=== PATIENT | female | born 2000 | race African-American/Black ===

== ENCOUNTER 2021-11-12 03:07 | Day surgery (SDC) | payer OTHER, SELFPAY ==
[2021-11-05 14:53] VITALS: BMI 20.4
--- NOTE | 2021-11-05 14:55 | SUR.PREOP ---
Report to the Outpatient Waiting Room, entrance under the green pavilion located off [facility], at time _0600 on date _11/12/21 . OR Time: _0730 - You and your visitor will be asked a series of questions to screen for COVID 19 for your protection. - Only one visitor is allowed at this time. - The patient visitor is requested to leave or wait in car when not with patient. - A mask is required within the hospital. Patients may have clear liquids (water, carbonated beverages, clear teas, apple juice) until 3 hours prior to surgery with a maximum of 20 ounces. - No food from midnight until time of surgery - Infants may have breast milk until 4 hours before surgery, infant formula 6 hours prior to surgery. - Children will be allowed to drink immediately following surgery. If applicable, please bring a bottle or sippy cup to assist with drinking. Juice, water, soda, and popsicles are readily available. For infants on formula, please bring formula the day of surgery. Pacifiers are allowed. Take the following medications with a SIP of water the morning of surgery: n/a Medications to discontinue per physician n/a Date to take last dose__n/a Please no make-up, nail citizen of [place], hairspray, perfume, deodorant, or body powder the day of surgery. No jewelry (including any body piercings) or valuables the day of surgery, leave them at home. Please take a shower or bath the night before, or the morning of, surgery with an antibacterial soap. Wear comfortable, loose fitting clothing. Children are encouraged to wear pajamas. - Jewelry must be removed prior to entering the operating room. Rings and piercings that are not removed may be cut off. - The hospital will not accept responsibility for valuables. - Please leave all valuables, including medications, at home the day of surgery. If you are going home after surgery, a licensed bung driver must drive you home. - NO public transportation without another adult. - We recommend that an adult stay with you for 24 hours following discharge. - We also recommend that you do not drive, make important decision, drink alcoholic beverages, or take any drugs that were not prescribed by your health care provider for at least 24 hours after your discharge time. For Pediatric surgeries, we recommend two adults accompany the child home (only one inside the building at this time). Follow any additional instructions given to you from your surgeon. If you or anyone in your household have experienced Covid symptoms in the past week, please notify your surgeon or the nurse liaison at the phone number below for possible testing. Telephone instructions given to _pattie carroll and asked if any additional questions and then verbalized understanding. Patient advised to call surgeon office or pre surgery nurse liaison [phone] if any additional questions.
[2021-11-12] MEDS: LACTATED RINGERS 1,000 ML 30 ML IV CONT ×2 (06:45→08:08)
--- NOTE | 2021-11-12 06:46 | P.PNAN_ITS ---
Anes - Initial Pre Proc Eval Procedure: Operation Date: 11/12/21 07:30 Proposed Procedures p Excision Subcutaneous Mass Right Dorsal Wrist - Sammy Jay MD Date/Time: 11/12/21 06:46 Surgeon: Sammy Jay MD Pre Op Diagnosis: subq mass right dorsal wrist Patient Data Age: 21 Gender: F Height: 1.61 m Weight: 53.18 kg Allergies Allergy/AdvReac Type Severity Reaction Status Date / Time yaima wrap AdvReac Mild Hives Uncoded 11/05/21 15:06 Home Medications Medication Instructions Recorded Confirmed Type No Home Medications 11/05/21 11/05/21 History Patient hx anesthesia problems: none Family hx anesthesia problems: none Results Review: All pre-operative results and documents have been reviewed as part of the pre- operative evaluation. [facility] Social History Social History Smoking status: Never smoker Living arrangements: alone Spiritual care concerns: No Anes - Eval Final PreProcedure Day of Procedure 11/12/21 06:46 Patient weight: normal Heart: regular rate and rhythm Lungs: clear to auscultation Airway: Mallampati scale class II Neurological: alert and oriented Last oral intake: >/= 8 hours ASA classification: I Emergent: no Anesthetic plan: proceed Anesthesia type and monitoring: general GIVS and standard monitoring Results Review: All pre-operative results and documents have been reviewed as part of the pre- operative evaluation. Informed Consent: The patient's anesthetic plan and its attendant risks and benefits were discussed with the patient/family/POA. Questions were solicited and answers provided to the satisfaction of the patient/family/POA.
[2021-11-12 07:00] VITALS: BP 116/74; PULSE 97; RESP 18; TEMP 36.8; O2SAT 97
--- NOTE | 2021-11-12 07:08 | WPDHPUPDATE1 ---
History and Physical Update Update Date/Time: 11/12/21 07:08 History and Physical has been reviewed, including an updated exam of the patient. There are NO changes in the patient's condition. Risks, benefits, and alternatives have been discussed and questions answered. Patient agrees to proceed with procedure.
[2021-11-12] MEDS: LIDO 2%/EPINEPHRINE 1:100,000 20 ML VIAL 10 ML INFILTRATE (07:35)
[2021-11-12 08:08] VITALS: BP 106/57; PULSE 92; RESP 16; O2SAT 100
--- NOTE | 2021-11-12 08:16 | W.PM.PROC2 ---
Procedure Note - Detailed Date of Procedure 11/12/21 Pre-op Diagnosis subq mass right dorsal wrist Post-op Diagnosis Same Procedure Performed Excision subcutaneous mass right dorsal wrist Surgeon Sammy Jay MD Anesthesia MAC Indications Dear subcu mass of the dorsal radiocarpal joint Findings Small amount of clear gel fluid and unusually vascularized local tissue Description of Procedure The subcutaneous mass on the right dorsal wrist was marked with the patient's preoperative on the right dorsal wrist. She was taken to the operating room where she was placed supine on the operating table. She was given IV sedation. The extremity was prepped and draped in usual fashion. A time-out was held and confirmed. The site was marked for incision and locally infiltrated with 1% lidocaine with epinephrine. The extremity was exsanguinated and the tourniquet inflated to 250 mmHg. The full towel was placed under the volar wrist and the incision was made. Dissection was carried through the subcutaneous tissue. A violaceous mass was encountered in the subcutaneous tissue. This was carefully dissected free it appeared to be linear. As this was dissected was clear the additional unusually vascularized tissue extended toward the wrist capsule. A small amount of gel fluid was encountered as we progressed. The vascular structure just proximal to the cystic mass was dissected free and ligated and divided. No similar structure was clearly identified or divided distally. The mass was dissected with sharp and blunt dissection gently elevating it from the capsule area. The vascularity of this massive. The this might be synovitis. The mass was taken off without significant effort at its origin. We examined his carefully looking for penetration into the joint capsule and did not identify that. The specimen was sent to pathology. A single 3-0 on mattress suture was placed transversely at the margins of the inflammatory tissue after cauterizing the surface. This suture did not impede passive flexion of the wrist. It did not include retinacular tissue. The tourniquet was released and the skin was closed with intradermal 4-0 Monocryl suture. A small bandage using Xeroform a folded drain sponge 3 turns of Kerlix roll and 1/2 3 in Fernando wrap were applied to this area for dressing care was taken not to tighten the Fernando wrap were applied tape to the skin. Tolerated well the patient is discharged home with a prescription for hydrocodone 5/325 number 5. She also has written instructions in care and Estimated Blood Loss -1.0 Drains No Pathology Yes Complications No immediate complications Condition Stable Disposition Same day
[2021-11-12 08:35] VITALS: BP 103/60; PULSE 71; RESP 16; O2SAT 100
[2021-11-12 09:05] VITALS: BP 119/82; PULSE 95; RESP 16
== END 2021-11-12 09:11 | disposition home or self-care (01) ==
PROVIDERS: Visit Provider Plastic Surgery
PROC: (CPT 25075; principal; 2021-11-12 07:30)
DX: R22.31 Localized swelling, mass and lump, right upper limb (principal)
CPT/HCPCS: 25075; 88304; J1885; J2250; J2370; J2704; J3010; J7120

== ENCOUNTER 2022-10-29 14:07 | Emergency (ER) | payer OTHER, SELFPAY ==
--- NOTE | ~2022-10-29 | US_ITS ---
EXAMINATION: US pelvic complete DATE: 10/29/2022 18:41 INDICATION: R pelvic pain, hx hemorrhagic cyst. Hemorrhagic cyst apparently cauterized during an appe ndectomy 2 weeks ago. TECHNIQUE: Multiple transabdominal and endovaginal sonographic images of the pelvis were obtained. COMPARISON: None. FINDINGS: Uterus: 7.0 x 3.5 x 3.7 cm. Endometrial complex measures 10 mm. Right Ovary: 5.0 x 5.8 x 4.3 cm. lobulated 2.9 cm right ovarian cyst with variably echogenic content, some of which displays minor color on color Doppler images presumably related to motion artifact. Va scular flow is present in the ovary, increased relative to the contralateral side. Left Ovary: 3.0 x 1.6 x 2.7 cm. Vascular flow is present. There is no free fluid in the pelvis. IMPRESSION: Heterogeneous 2.9 cm right ovarian cyst in a generally hyperemic ovary, presumably representing a res olving hemorrhagic cyst and post therapeutic changes, given the above history. Consider short-term pe lvic ultrasound follow-up to ensure resolution. Reviewed, dictated and finalized at location K. IMPRESSION: Heterogeneous 2.9 cm right ovarian cyst in a generally hyperemic ovary, presuma viry representing a resolving hemorrhagic cyst and post therapeutic changes, giv en the above history. Consider short-term pelvic ultrasound follow-up to ensure resolution.
[2022-10-29 14:22] VITALS: BP 110/70; PULSE 128; RESP 18; TEMP 36.4; O2SAT 99
--- NOTE | 2022-10-29 17:07 | ED.LOWEXIN ---
HPI - Extremity Injury (Lower) General Chief Complaint: Extremity Injury, Lower Stated Complaint: R hip/leg pain Time Seen by Provider: 10/29/22 16:51 History of Present Illness HPI Narrative: 22-year-old female here for evaluation of right pelvic pain x2 weeks. Patient states that she had her appendix removed 2 weeks ago by a surgeon at [place]. Apparently during the surgery the surgeon noticed that she had a hemorrhagic ovarian cyst and this was ligated. She was told to follow-up with an MANAGER PACU. According to the patient since surgery she has had a large amount of pain in her right groin/pelvic region and has had a large amount of custard like vaginal discharge. She has been taking oxycodone for pain without relief. She denies chance of as she is not sexually active. Reports nausea but no vomiting. No urinary symptoms. Related Data Allergies Allergy/AdvReac Type Severity Reaction Status Date / Time yaima wrap AdvReac Mild Hives Uncoded 11/12/21 07:21 Review of Systems Review of Systems: Gen.: Denies fevers or chills Eyes: Denies eye pain or visual change ENT: Denies congestion Respiratory: Denies shortness of breath or cough CV: Denies chest pain or palpitations GI: Denies abdominal pain nausea, emesis or diarrhea reports right pelvic pain and vaginal discharge. Denies burning, urgency, frequency or hematuria Musculoskeletal: Denies back pain or muscle pain Neuro: Denies numbness, tingling, weakness or focal weakness Skin: Denies rash Except as documented, all other systems reviewed and negative PMFSH Social History Social History Smoking status: Never smoker Living arrangements: alone Spiritual care concerns: No Exam Narrative: APPEARANCE: Well appearing, no pain in distress, well-nourished. Head: Normocephalic and atraumatic. EYES: PERRLA/EOMI, conjunctivae clear NOSE: No nasal drainage EARS: External ear normal in appearance THROAT: Oropharynx is clear. Mucous membranes are moist. NECK: Supple. No adenopathy, no masses. RESPIRATORY: Airway patent, respirations nonlabored. Clear to auscultation bilaterally, no rales, rhonchi, wheezing. : exam performed with director organizational alisson. moderate amount of green/yellow discharge in vaginal vault. cervix without lesions. no CMT. CARDIOVASCULAR: Regular rate and rhythm without murmurs, rubs, or gallops. ABDOMINAL: Normoactive bowel sounds. Soft, nontender, nondistended. No rebound tenderness or guarding. MUSCULOSKELETAL: Extremities are warm and well-perfused. Moves all extremities well. No edema. NEURO: Normal speech. No focal neurologic deficits. SKIN: Skin is warm and dry. No rashes. PSYCHIATRIC: Normal affect/mood. Course Vital Signs Vital signs: Vital Signs Temperature 97.6 F 10/29/22 14:22 Pulse Rate 128 H 10/29/22 14:22 Respiratory Rate 18 10/29/22 14:22 Blood Pressure 110/70 10/29/22 14:22 Pulse Oximetry 99 10/29/22 14:22 Oxygen Delivery Room Air 10/29/22 14:22 Temperature 97.6 F 10/29/22 14:22 Pulse Rate 95 10/29/22 20:07 Respiratory Rate 18 10/29/22 20:07 Blood Pressure 108/64 10/29/22 20:07 Pulse Oximetry 99 10/29/22 20:07 Oxygen Delivery Room Air 10/29/22 14:22 MDM - Extremity Injury (Lower) MDM Narrative Medical decision making narrative: 21-year-old female here for evaluation of pelvic pain x1 week. Evidence of resolving hemorrhagic cyst on the ultrasound. Patient initially tachycardic likely due to pain which resolved in the ED with fluids and pain meds. Pelvic exam without CMT to suggest PID. Basic labs unremarkable. UA with possible infection. Spoke with Dr. Forrest, MANAGER PACU, who will follow as outpatient. Will send home with short course of pain meds and antibiotics for UTI. Lab Data 10/29/22 17:24 10/29/22 17:24 Labs: Lab Results 10/29/22 10/29/22 10/29/22 Range/Units 17:24 18:
[2022-10-29] MEDS: SODIUM CHLORIDE 0.9% IV 1,000 ML 999 ML IV CONT (17:24)
[2022-10-29] MEDS: ONDANSETRON INJ 4 MG/2 ML VIAL IV PUSH (17:25)
[2022-10-29] MEDS: KETOROLAC 15 MG/ML VIAL (*BKC) IV PUSH (17:25)
[2022-10-29 17:42] LABS: Basophils Percent Auto 0.3 % (0.2-1.2); Eosinophils Percent Auto 0.2 % (0-4.4); Hematocrit 37.6 % (37.0-47.0); Hemoglobin 12.1 g/dL (12.0-15.0); Immature Granulocyte Absolute 0.04 K/mm3 (0.00-0.031); Immature Granulocyte Percent A 0.3 % (0-0.5); Lymphocytes Absolute Auto 2.15 K/mm3 (0.9-3.2); Lymphocytes Percent Auto 18.8 % (18.3-44.2); Mean Corpuscular HGB Conc 32.2 g/dl (32-36); Mean Corpuscular Hemoglobin 28.5 pg (26-34); Mean Corpuscular Volume 88.7 fl (80-100); Mean Platelet Volume 9.5 fl (7.4-10.4); Monocytes Percent Auto 8.4 % (2.6-8.5); Neutrophils Absolute Auto 8.2 K/mm3 (1.3-6.7); Platelet Count Result 607 k/mm3 (150-375); Red Blood Count 4.24 M/mm3 (4.2-5.4); Red Cell Distribution Width 12.6 % (11.5-14.5); White Blood Count 11.4 K/mm3 (4.5-10.0)
[2022-10-29 17:51] LABS: Appearance Urine Cloudy (Clear); Bacteria Urine 2+ /hpf; Bilirubin Urine Negative (Negative); Blood Urine Negative (Negative); Color Urine Dark Yellow (Yellow); Glucose Urine UA Negative (Negative); Ketones Urine 1+ mg/dL (Negative); Leukocyte Esterase Ur 2+ LEU/UL (Negative); Nitrate Urine Negative (Negative); Protein Urine 1+ mg/dL (Negative); RBC Urine 0-2 /hpf (0-2); Specific Grav Ur 1.022 (1.001-1.035); Squamous Epithelial Cell Urine Moderate /hpf (Few); WBC Urine 51-100 /hpf
[2022-10-29 17:53] LABS: Alanine Aminotransferase 21 U/L (6-35); Albumin Level 4.5 g/dL (3.5-5.1); Alkaline Phosphatase 100 U/L (38-126); Anion Gap 9 mmol/L (8-16); Aspartate Amino Transferase 24 U/L (14-36); Bilirubin,Total 0.5 mg/dL (0.2-1.3); Blood Urea Nitrogen 7 mg/dL (7-17); Calcium 9.3 mg/dL (8.4-10.2); Carbon Dioxide 26 mmol/L (22-30); Chloride 99 mmol/L (98-107); Estimated CRCL calculation 83 ml/min; Estimated Glomerular Filt Rate > 60; Glucose 94 mg/dL (65-110); Sodium 134 mmol/L (137-145)
[2022-10-29 17:55] LABS: Add Urine Microscopic? YES
[2022-10-29] MEDS: MORPHINE SULFATE (*CRX) 2 MG/ML INJ IV PUSH (18:35)
[2022-10-29 20:07] VITALS: BP 108/64; PULSE 95; RESP 18; O2SAT 99
== END 2022-10-29 20:00 | disposition home or self-care (01) ==
PROVIDERS: Emergency Provider Physician Assistant; PCP Nurse Practitioner Family
DX: N83.201 Unspecified ovarian cyst, right side (principal); N39.0 Urinary tract infection, site not specified; N89.8 Other specified noninflammatory disorders of vagina; R11.0 Nausea; Z98.890 Other specified postprocedural states
CPT/HCPCS: 36415; 76856; 80053; 81001; 81025; 83605; 85025; 87070; 87086; 87088; 87491; 87591; 87808; 96361; 96374; 96375; 99284; J1885; J2270; J2405; J7030

== ENCOUNTER 2023-03-31 19:26 | Emergency (ER) | payer OTHER, SELFPAY ==
--- NOTE | ~2023-03-31 | XR_ITS ---
EXAMINATION: XR chest 2V Exam Date/Time: 03/31/2023 19:38 SKIN DIVER HISTORY: cough, congestion. CHRONIC CHEST PAIN IN CENTER OF CHEST Comparison: None. RESULT: Lines, tubes, and devices: None. Lungs and pleura: Clear. Cardiomediastinal silhouette: Normal. Other: No acute osseous or upper abdominal finding. IMPRESSION: No acute cardiopulmonary process. Reviewed, dictated and finalized at location K. DIVER
--- NOTE | 2023-03-31 19:27 | ECG_ITS ---
Measurements Intervals [place] Rate: 104 P: 75 CA: 132 QRS: 62 QRSD: 78 T: -11 QT: 292 QTc: 385 Interpretive Statements SINUS TACHYCARDIA LEFT ATRIAL ENLARGEMENT BORDERLINE ST-T WAVE ABNORMALITY- ANT/INF LEADS BORDERLINE ECG NO PREVIOUS ECG AVAILABLE FOR COMPARISON Electronically Signed On 04-01-2023 6:41:52 DEPARTURE CLERK by Alexis Vargas D.O.
[2023-03-31 19:33] VITALS: BP 143/76; PULSE 104; RESP 12; TEMP 36.5; O2SAT 100
[2023-03-31 20:17] LABS: Influenza A QL RT-PCR Negative (Negative); Influenza B QL RT-PCR Negative (Negative); RSV RNA, RT-PCR Negative (Negative); SARS-CoV-2 RNA PCR Negative (Negative)
[2023-03-31 21:33] VITALS: BP 136/81; PULSE 115; RESP 22; O2SAT 100
[2023-03-31 21:38] VITALS: O2SAT 100
--- NOTE | 2023-03-31 22:17 | ED.CHESTPAIN ---
HPI - Chest Pain General Chief Complaint: Chest Pain Stated Complaint: chest pains, sob Time Seen by Provider: 03/31/23 21:33 History of Present Illness HPI narrative: 22-year-old female reports for evaluation for midsternal chest pain, sore throat, and productive cough x1 week. Patient states about a week ago she began developing URI symptoms including a productive cough and then yesterday developed pleuritic substernal chest pain. She denies radiating symptoms, diaphoresis or nausea. She reports a sore throat and bilateral otalgia but denies fever, nausea or vomiting, nasal congestion, syncope. States her cough has improved today and her chest pain is currently ?very faint?. She does report a history of sports induced asthma as a child but states that it has since resolved. She does not smoke. She is being worked up outpatient by her PCP for chronic chest pain and tachycardia for multiple years, no known cause identified. She had a Holter monitor 3 weeks ago and is waiting to hear back results. She states the chest pain she began experiencing yesterday and today is unchanged from her chronic chest pain. Denies abdominal pain, urinary complaints. Patient was sent here by urgent care and had a negative strep test prior to arrival. Related Data Allergies Allergy/AdvReac Type Severity Reaction Status Date / Time yaima wrap AdvReac Mild Hives Uncoded 11/12/21 07:21 Review of Systems Review of Systems: CONSTITUTIONAL: Denies fever, chills, or sweats. EYES: Denies visual changes, redness, or discharge. ENT: See HPI CARDIOVASCULAR: See HPI RESPIRATORY: Denies cough or dyspnea. GASTROINTESTINAL: Denies abdominal pain, nausea, vomiting, or diarrhea. GENITOURINARY: Denies dysuria or hematuria. SKIN: Denies rash or itching. MUSCULOSKELETAL: Denies back pain, joint pain, or myalgia. NEUROLOGIC: Denies headache, numbness, or weakness. PSYCHIATRIC: Denies anxiety or depression. [facility] Social History Social History Smoking status: Never smoker Living arrangements: alone Spiritual care concerns: No Exam Narrative: GENERAL: Well-appearing, well-nourished, and in no acute distress. HEAD: Normocephalic, atraumatic. EYES: PERRLA and EOMI. ENT: Nares clear, no rhinorrhea or epistaxis. Mucous membranes moist. Bilateral tonsils without hypertrophy or exudates. No erythema to posterior pharynx. There is postnasal drip. NECK: Supple. CHEST: Clear to auscultation. No respiratory distress. HEART: Regular rate and rhythm. No murmur heard. Normal peripheral pulses. ABDOMEN: Soft, nontender, nondistended, normal active bowel sounds. No CVA tenderness. EXTREMITIES: Normal range of motion. No edema. SKIN: Warm, dry, no rash. NEURO: No focal deficits. Alert and oriented x3 Course Vital Signs Vital signs: Vital Signs Temperature 97.7 F 03/31/23 19:33 Pulse Rate 104 H 03/31/23 19:33 Respiratory Rate 12 03/31/23 19:33 Blood Pressure 143/76 H 03/31/23 19:33 Pulse Oximetry 100 03/31/23 19:33 Oxygen Delivery Room Air 03/31/23 19:33 Temperature 97.7 F 03/31/23 19:33 Pulse Rate 115 H 03/31/23 21:33 Respiratory Rate 22 H 03/31/23 21:33 Blood Pressure 136/81 03/31/23 21:33 Pulse Oximetry 100 03/31/23 21:38 Oxygen Delivery Room Air 03/31/23 21:38 MDM - Chest Pain MDM Narrative Medical decision making narrative: 22-year-old female with history of chronic chest pain and tachycardia reports for evaluation for pleuritic chest pain, sore throat, otalgia and productive cough. See HPI for further history. Triage vitals significant for mildly elevated blood pressure 143/76 and tachycardia before. She is afebrile and well appearing on exam. Exam is significant for the above. CBC without leukocytosis or anemia. Chemistries unremarkable. Magnesium normal. [place], COVID, flu RSV are negative. Lipase normal. D-dimer within normal limits, We
[2023-03-31] MEDS: SODIUM CHLORIDE 0.9% IV 1,000 ML 999 ML IV CONT (22:33)
[2023-03-31] MEDS: KETOROLAC 15 MG/ML VIAL (*BKC) IV PUSH (22:34)
[2023-03-31 23:02] LABS: Prothrombin Time 13.6 Seconds (11.1-14.7)
[2023-03-31 23:03] LABS: Partial Thromboplastin Time 31.7 SECONDS (22.3-36.8)
[2023-03-31 23:05] LABS: Lipase 105 U/L (23-300)
[2023-03-31 23:18] LABS: NT Pro B Type Natriuretic Pept 34 pg/mL (19.9-100); Troponin I < 0.012 ng/mL (0.000-0.034)
[2023-03-31 23:35] LABS: Monoscreen Negative (Negative); Negative Monotest Control Negative (Negative); Positive Monotest Control Positive (Positive)
[2023-04-01 00:35] LABS: Basophils Absolute Auto 0.1 K/mm3 (0.0-0.1); Basophils Percent Auto 0.7 % (0.2-1.2); Eosinophils Absolute Auto 0.3 K/mm3 (0-0.3); Eosinophils Percent Auto 3.2 % (0-4.4); Hematocrit 41.6 % (37.0-47.0); Hemoglobin 13.3 g/dL (12.0-15.0); Immature Granulocyte Absolute 0.03 K/mm3 (0.00-0.031); Immature Granulocyte Percent A 0.3 % (0-0.5); Lymphocytes Absolute Auto 3.58 K/mm3 (0.9-3.2); Lymphocytes Percent Auto 40.9 % (18.3-44.2); Mean Corpuscular Hemoglobin 28.7 pg (26-34); Mean Corpuscular Volume 89.7 fl (80-100); Mean Platelet Volume 10.8 fl (7.4-10.4); Monocytes Absolute Auto 0.8 K/mm3 (0.1-0.6); Monocytes Percent Auto 9.1 % (2.6-8.5); Neutrophils Percent Auto 45.8 % (45.5-73.1); Platelet Count Result 325 k/mm3 (150-375); Red Blood Count 4.64 M/mm3 (4.2-5.4); Red Cell Distribution Width 12.7 % (11.5-14.5); White Blood Count 8.8 K/mm3 (4.5-10.0)
[2023-04-01 00:39] LABS: Alanine Aminotransferase 21 U/L (6-35); Albumin Level 4.6 g/dL (3.5-5.1); Alkaline Phosphatase 86 U/L (38-126); Anion Gap 14 mmol/L (8-16); Aspartate Amino Transferase 27 U/L (14-36); Bilirubin,Total 0.4 mg/dL (0.2-1.3); Blood Urea Nitrogen 12 mg/dL (7-17); Calcium 9.6 mg/dL (8.4-10.2); Carbon Dioxide 23 mmol/L (22-30); Chloride 104 mmol/L (98-107); Estimated CRCL calculation 89 ml/min; Estimated Glomerular Filt Rate > 60; Glucose 90 mg/dL (65-110); Potassium 3.8 mmol/L (3.4-5.0); Sodium 141 mmol/L (137-145)
[2023-04-01 00:59] VITALS: BP 122/79; PULSE 97; RESP 12; TEMP 36.9; O2SAT 100
== END 2023-04-01 01:28 | disposition home or self-care (01) ==
PROVIDERS: Emergency Medicine; Emergency Provider Physician Assistant; PCP Nurse Practitioner Family
DX: J40 Bronchitis, not specified as acute or chronic (principal); R07.89 Other chest pain; R09.1 Pleurisy; J02.9 Acute pharyngitis, unspecified; R00.0 Tachycardia, unspecified
CPT/HCPCS: 36415; 71046; 80053; 81025; 83690; 83735; 83880; 84484; 85025; 85380; 85610; 85730; 86308; 87637; 93005; 96361; 96374; 99284; J1885; J7030

== ENCOUNTER 2023-07-30 08:30 | Emergency (ER) | payer OTHER, SELFPAY ==
--- NOTE | ~2023-07-30 | US_ITS ---
EXAMINATION: US pelvic complete DATE: 07/30/2023 11:04 INDICATION: Right ovarian torsion TECHNIQUE: Multiple transabdominal sonographic images of the pelvis were obtained. COMPARISON: None. FINDINGS: The uterus measures 5.6 x 3.1 x 4.8 cm. The endometrial complex measures 5 mm in thickness. The righ t ovary measures 3.2 x 2.4 x 2.1 cm. The left ovary measures 2.8 x 1.9 x 1.7 cm. After flow with jayne rial waveforms identified at both ovaries on color Doppler. There is no free fluid in the pelvis. IMPRESSION: 1. Normal pelvic ultrasound. Reviewed, dictated and finalized at location B.
[2023-07-30 08:34] VITALS: BP 137/81; PULSE 109; RESP 18; TEMP 36.6; O2SAT 100
[2023-07-30 08:57] LABS: Basophils Percent Auto 0.4 % (0.2-1.2); Eosinophils Absolute Auto 0.3 K/mm3 (0-0.3); Hematocrit 43.9 % (37.0-47.0); Hemoglobin 14.5 g/dL (12.0-15.0); Immature Granulocyte Absolute 0.02 K/mm3 (0.00-0.031); Immature Granulocyte Percent A 0.2 % (0-0.5); Lymphocytes Absolute Auto 4.49 K/mm3 (0.9-3.2); Lymphocytes Percent Auto 49.1 % (18.3-44.2); Mean Corpuscular Hemoglobin 30.4 pg (26-34); Mean Platelet Volume 10.1 fl (7.4-10.4); Monocytes Absolute Auto 0.6 K/mm3 (0.1-0.6); Monocytes Percent Auto 6.8 % (2.6-8.5); Neutrophils Absolute Auto 3.7 K/mm3 (1.3-6.7); Neutrophils Percent Auto 40.5 % (45.5-73.1); Platelet Count Result 287 k/mm3 (150-375); Red Blood Count 4.77 M/mm3 (4.2-5.4); Red Cell Distribution Width 12.2 % (11.5-14.5); White Blood Count 9.1 K/mm3 (4.5-10.0)
[2023-07-30 09:18] LABS: Appearance Urine Cloudy (Clear); Bacteria Urine 2+ /hpf; Bilirubin Urine Negative (Negative); Blood Urine Negative (Negative); Color Urine Yellow (Yellow); Glucose Urine UA Negative (Negative); Ketones Urine Negative (Negative); Leukocyte Esterase Ur Negative LEU/UL (Negative); Need Manual Microscopic Need Manual; Nitrate Urine Negative (Negative); Non Pathogenic Casts 0-2; Protein Urine Trace mg/dL (Negative); RBC Urine 0-2 /hpf (0-2); Specific Grav Ur 1.029 (1.001-1.035); Squamous Epithelial Cell Urine Few /hpf (Few); Urobilinogen Urine 0.2 mg/dL (<2.0)
[2023-07-30 09:30] LABS: Add Urine Microscopic? YES
[2023-07-30 09:46] LABS: Alanine Aminotransferase 20 U/L (6-35); Albumin Level 4.6 g/dL (3.5-5.1); Alkaline Phosphatase 80 U/L (38-126); Anion Gap 9 mmol/L (8-16); Aspartate Amino Transferase 27 U/L (14-36); Bilirubin,Total 0.3 mg/dL (0.2-1.3); Blood Urea Nitrogen 18 mg/dL (7-17); Calcium 9.2 mg/dL (8.4-10.2); Carbon Dioxide 22 mmol/L (22-30); Chloride 105 mmol/L (98-107); Estimated CRCL calculation 78 ml/min; Estimated Glomerular Filt Rate > 60; Glucose 107 mg/dL (65-110); Lipase 151 U/L (23-300); Potassium 3.3 mmol/L (3.4-5.0); Sodium 136 mmol/L (137-145)
[2023-07-30 11:15] VITALS: BP 133/77; PULSE 110; RESP 16; O2SAT 100
--- NOTE | 2023-07-30 12:07 | ED.ABDPAIN ---
HPI - Abdominal Pain General Chief Complaint: Abdominal Pain Stated Complaint: abd pain Time Seen by Provider: 07/30/23 08:35 Source: patient Mode of arrival: ambulatory Limitations: no limitations History of Present Illness HPI narrative: 23-year-old with a history of asthma, ovarian cyst status post appendectomy here with complaints of right lower abdominal pain which started this morning. Patient states that she has chronic pain in the right lower abdomen however this morning of pain got worse. She presently denies any vaginal bleeding or discharge. Patient states that she had a large bowel movement soon after she got to the ER. No history of nausea vomiting. MD elicited complaint: abdominal pain Pertinent past history: none Onset (ago): hour(s) (2) Pain Consistency: constant Location: RLQ Severity: moderate Quality: aching Radiation: none Migration to: no migration Exacerbating factors: nothing Relieving factors: nothing Related Data Allergies Allergy/AdvReac Type Severity Reaction Status Date / Time yaima wrap AdvReac Mild Hives Uncoded 11/12/21 07:21 Review of Systems Review of Systems: All systems reviewed & are unremarkable except as noted in HPI and below Constitutional: Constitutional: Reports no additional constitutional complaints Eyes: Eyes: Reports no additional eye complaints ENT: Reports system reviewed and no additional complaints, except as documented Cardiovascular: Cardiovascular: Reports no additional cardiovascular complaints Respiratory: Respiratory: Reports no additional respiratory complaints Gastrointestinal: Gastrointestinal: Reports as per HPI Musculoskeletal: Musculoskeletal: Reports no additional musculoskeletal complaints Integumentary/Breasts: Skin/Breast: Reports system reviewed and no additional complaints, except as docu Neurologic: Reports system reviewed and no additional complaints, except as documented PMFSH Social History Social History Smoking status: Never smoker Living arrangements: alone Spiritual care concerns: No Exam Narrative: GENERAL: Well-appearing, well-nourished, and in no acute distress. HEAD: Normocephalic, atraumatic. EYES: PERRLA and EOMI. ENT: Nares clear, no rhinorrhea or epistaxis. Mucous membranes moist. NECK: Supple. CHEST: Clear to auscultation. No respiratory distress. HEART: Regular rate and rhythm. No murmur heard. Normal peripheral pulses. ABDOMEN: Soft, mild tendeness in the right lower abd , nondistended, normal active bowel sounds. EXTREMITIES: Normal range of motion. No edema. SKIN: Warm, dry, no rash. NEURO: No focal deficits. Alert and oriented x3. PSYCH: Normal mood and affect. Course Course Emergency Course: Pain is much improved. Informed about the lab work, ultrasound findings. Recommended her to follow with her OBGYN Vital Signs Vital signs: Vital Signs Temperature 36.6 C 07/30/23 08:34 Pulse Rate 109 H 07/30/23 08:34 Respiratory Rate 18 07/30/23 08:34 Blood Pressure 137/81 07/30/23 08:34 Pulse Oximetry 100 07/30/23 08:34 Oxygen Delivery Room Air 07/30/23 08:34 Temperature 36.6 C 07/30/23 08:34 Pulse Rate 110 H 07/30/23 11:15 Respiratory Rate 16 07/30/23 11:15 Blood Pressure 133/77 07/30/23 11:15 Pulse Oximetry 100 07/30/23 11:15 Oxygen Delivery Room Air 07/30/23 08:34 MDM - Abdominal Pain Lab Data 07/30/23 08:49 07/30/23 08:49 Labs: Lab Results 07/30/23 Range/Units 08:49 WBC 9.1 (4.5-10.0) K/mm3 RBC 4.77 (4.2-5.4) M/mm3 Hgb 14.5 (12.0-15.0) g/dL Hct 43.9 (37.0-47.0) % MCV 92.0 (80-100) fl MCH 30.4 (26-34) pg MCHC 33.0 (32-36) g/dl RDW 12.2 (11.5-14.5) % Plt Count 287 (150-375) k/mm3 MPV 10.1 (7.4-10.4) fl Immature Gran % (Auto) 0.2 (0-0.5) % Neut % (Auto) 40.5 L (45.5-73.1) % Lymph % (Auto) 49.1 H (18.3-44.2) % [place]
== END 2023-07-30 12:15 | disposition home or self-care (01) ==
PROVIDERS: Emergency Provider Family Medicine; PCP Nurse Practitioner Family
DX: R10.31 Right lower quadrant pain (principal); J45.909 Unspecified asthma, uncomplicated
CPT/HCPCS: 36415; 76856; 80053; 81025; 83690; 85025; 87086; 87088; 99284